=== PATIENT | female | born 1930 | race Caucasian/White ===

== ENCOUNTER 2017-03-27 19:41 | Observation (INO) ==
[2017-03-27] MEDS ORDERED: ASPIRIN 81 MG CHEWABLE TABLET PO ONE (20:10)
[2017-03-27] MEDS: NITROGLYCERIN 0.4 MG SUBLINGUAL TABLET SL PRN ×3 (20:18→20:35)
[2017-03-27] MEDS: SALINE FLUSH 10ml SYRINGE IVF PRN ×2 (20:19→21:51)
--- OUTSIDE RECORDS SUMMARY | 2017-03-27 20:24 | External Medical Summary | Referral Summary ---
:1930 Author Organization [facility] Address [address] [place] [address] Care Team Providers Name Role Phone Josh Jaquez Primary Care Physician Encounter [facility] [id number] Date(s): 05/25/15 - 05/25/15 [facility] [address] [place] [address] Discharge Disposition: 01-Home or Self Care Attending Physician: Waldo Love MD Admitting Physician: Waldo Love MD Vital Signs Most recent to oldest [Reference Range]: 1 Peripheral Pulse Rate [60-100 bpm] 79 bpm (05/25/15 1:56 PM) Respiratory Rate [14-20 br/min] 18 br/min (05/25/15 1:56 PM) Blood Pressure [90-140/60-90 mmHg] 174/77 mmHg *HI* (05/25/15 1:56 PM) SpO2 99 % (05/25/15 1:56 PM) Problem List Condition Effective Dates Status Health Status Informant Acute pain(Confirmed) Active Arthritis(Confirmed) Active patient At risk for infection(Confirmed)1 Active At risk of pressure sore(Confirmed) Active Cardiac disorder(Confirmed)2 Active Fluid imbalance(Confirmed)3 Active TELIDA (hard of hearing)(Confirmed) Active patient HTN (hypertension)(Confirmed) Active patient Impaired gas exchange(Confirmed)4 Active Impaired skin integrity(Confirmed)5 Active Tissue perfusion Active alteration(Confirmed)6 1Problem added automatically by system based on initiation of At Risk for Infection in Nutrition Planof [id number] added automatically by system based on initiation of Cardiac Output/Ineffective Cardiac Perfusion Plan of [id number] added automatically by system based on initiation of Fluid Volume Imbalance Plan of [id number] added automatically by system based on initiation of Impaired Gas Exchange Plan of [id number] added automatically by system based on initiation of Impaired Skin Integrity Plan of [id number] added automatically by system based on initiation of Tissue Perfusion Cerebral Plan of Care Allergies, Adverse Reactions, Alerts Substance Reaction Severity Status sulfa drugs Head and Stomach ache Medium Active Medications aspirin 81 mg, Oral, Bedtime (once a day), 0 Refill(s) Start Date: 04/21/14 Status: Orderedglucosamine 1,500 mg, Oral, BID, 0 Refill(s) Start Date: 04/21/14 Status: OrderedLutein 20 mg oral tablet See Instructions, 1 tabs Oral Daily on MWF, 0 Refill(s) Start Date: 05/25/15 Status: Orderedmagnesium oxide 600 mg, Oral, Daily, 0 Refill(s) Start Date: 04/21/14 Status: OrderedMisc Medication Calcium with D3, 1200mg, 1 tab oral bid, 0 Refill(s) Start Date: 04/21/14 Status: OrderedMisc Medication See Instructions, Lipo Flavoid, 1 tab oral bid, 0 Refill(s) Start Date: 04/21/14 Status: Orderedmultivitamin See Instructions, Complete Senior Adult 50+, 1 tab, daily, 0 Refill(s) Start Date: 04/21/14 Status: OrderedPlavix 75 mg oral tablet 1 tabs, Oral, Daily, # 90 tabs, 3 Refill(s) Start Date: 05/09/14 Status: Orderedpravastatin 10 mg oral tablet See Instructions, 1 tabs Oral Bedtime on Sunday and , 0 Refill(s) Start Date: 05/25/15 Status: OrderedVitamin D3 1,000 Intl_Units, Oral, BID, 0 Refill(s) Start Date: 04/21/14 Status: Ordered Results Hematology Most recent to oldest [Reference Range]: 1 WBC [4.8-10.8 10*3/uL] 4.4 10*3/uL *LOW* (05/25/15 1:51 PM) RBC [4.00-5.20] 4.20 (05/25/15 1:51 PM) Hgb [12.0-16.0 gm/dL] 12.6 gm/dL (05/25/15 1:51 PM) Hct [37.0-47.0 %] 39.3 % (05/25/15 1:51 PM) MCV [82.0-99.0 fL] 93.6 fL (05/25/15 1:51 PM) MCH [27.0-32.0 pg] 30.0 pg (05/25/15 1:51 PM) MCHC [32.0-36.0 gm/dL] 32.1 gm/dL (05/25/15 1:51 PM) RDW [11.5-14.5 %] 13.7 % (05/25/15 1:51 PM) Platelet [150-400 10*3/uL] 157 10*3/uL (05/25/15 1:51 PM) MPV [9.4-12.4 fL] 10.8 fL (05/25/15 1:51 PM) Chemistry Most recent to oldest [Reference Range]: 1 Sodium Lvl [136-144 mEq/L] 139 mEq/L (05/25/15 1:51 PM) Potassium Lvl [3.6-5.1 mEq/L] 4.0 mEq/L (05/25/15 1:51 PM) Chloride [99-109 mEq/L] 103 mEq/L (05/25/15 1:51 PM) CO2 [22-32 mEq/L] 28 mEq/L (05/25/15 1:51 PM) AGAP [3-20] 8 (05/25/15 1:51 PM) BUN [4-20 mg/dL] 17 mg/dL (05/25/15 1:51 PM) Glucose Lvl [70-100 mg/dL] 151 mg/dL *HI* (05/25/15 1:51 PM) Creatinine Lvl [0.44-1.03 mg/dL] 0.98 mg/dL (05/25/15 1:51 PM) eGFR [>60] 54 1 *ABN* (05/25/15 1:51 PM) Calcium Lvl [8.6-10.0 mg/dL] 9.3 mg/dL (05/25/15 1:51 PM) 1Result Comment: Multiply eGFR results by 1.21 for race. 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 Onlytrsace perivalvular leak is seen.The patient had no further events and no further symptoms and is doing fairly well. Orders: Electrocardiogram
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
[2017-03-27] MEDS ORDERED: METOPROLOL 5mg/5ml INJECTION IVP ONE (21:45)
[2017-03-27] MEDS ORDERED: ACETAMINOPHEN 325 MG TABLET PO PRN (22:30)
[2017-03-27] MEDS ORDERED: ONDANSETRON 4 MG/2 ML INJECTION IVP PRN (22:30)
[2017-03-27] MEDS ORDERED: HYDROCODONE/APAP 5mg/325mg TABLET PO PRN (22:30)
[2017-03-27] MEDS ORDERED: DOCUSATE SODIUM 100 MG CAPSULE PO PRN (22:30)
[2017-03-27] MEDS ORDERED: NITROGLYCERIN 0.4 MG SUBLINGUAL TABLET SL PRN (23:06)
[2017-03-27 23:15] VITALS: BMI 25.7
[2017-03-27] MEDS: NS 1,000 ML IV SCH ×2 (23:36→23:39)
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
[2017-03-28 08:07] VITALS: RESP 16; O2SAT 93
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
[2017-03-28] MEDS ORDERED: ASPIRIN 81 MG CHEWABLE TABLET PO SCH ×2 (09:00→21:00)
--- NOTE | 2017-03-28 10:55 | Progress Note ---
Progress Note: The patient was admitted last evening by the telemedicine hospitalist. The patient actually sees Dr. Jaquez for primary care. I did stop by and talk with the patient briefly. She did confirm her primary care physician was Dr. Jaquez. She stated she had some chest pressure last night but none today. She denies any shortness of breath or nausea. She states she feels normal today. She did have an increase in her troponin overnight. Her vital signs are currently stable. I did notify Dr. Dr. Jaquez this morning, of his patient's admission overnight. He did request that I make sure the patient was stable since he will not be able to see her until later in the day. At this time, she does appear to be stable. I also did call and talk with Dr. Sanchez who stated that he was aware of the patient's admission and would be seeing her later today. I did call the nurse and notified her that would be assuming care this patient and asked her to change the attending on the computer.
[2017-03-28] MEDS ORDERED: REGADENOSON 0.4 MG/5 ML INJECTION IVP ONE (11:00)
[2017-03-28] MEDS ORDERED: SALINE FLUSH 10ml SYRINGE ONE (11:00)
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
[2017-03-28 16:52] VITALS: BP 139/73; PULSE 76; TEMP 97.5
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
[2017-03-28] MEDS: CLOPIDOGREL 75 MG TABLET PO ONE ×2 (18:12→18:31)
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
[2017-03-28] MEDS ORDERED: ROSUVASTATIN 5 MG TABLET PO SCH (21:00)
[2017-03-29] MEDS ORDERED: CLOPIDOGREL 75 MG TABLET PO SCH (09:00)
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
== END 2017-03-28 20:45 | disposition home or self-care (01) ==
LOC: SRG 19:41 → ED 19:41 → SUATTDRO 22:30 → SRG 23:00
PROVIDERS: ADMIT Internal Medicine; ATTEND Family Medicine

== ENCOUNTER 2017-03-31 08:11 | Observation (INO) ==
--- NOTE | 2017-03-31 08:21 | Emergency Department Report ---
General Adult HPI - General Stated complaint: cp Time Seen by Provider: 03/31/17 08:20 Source: patient, EMS Mode of arrival: ambulatory Limitations: no limitations - History of Present Illness HPI narrative: 87-year-old female presents to the emergency department with chief complaints of chest pain. Patient describes her pain as a pressure that she rates as mild. It is in the center of the chest without radiation. She was given 324 mg of aspirin by mouth 1 from EMS prior to arrival to the emergency department today. She was given 3 sublingual nitroglycerin tablets with some relief. She denies any other complaints or associated symptoms. She was at home when the symptoms began. Symptoms have been persistent in nature since onset. She has no other complaints or associated symptoms at this time. - Related Data Home Medications Medication Instructions Recorded Confirmed Calcium Carbonate [Calcium] 1,200 mg PO DAILY 03/27/17 03/31/17 Cholecalciferol [Vit. D-3] 1,000 mg PO DAILY 03/27/17 03/31/17 Glucosamine 1,500 mg PO DAILY 03/27/17 03/31/17 Lipo Flavoid 1 tab PO DAILY 03/27/17 03/31/17 Lutein 20 mg PO MOWEFR 03/27/17 03/31/17 Magnesium Oxide [Magox] 800 mg PO DAILY 03/27/17 03/31/17 Metoprolol Tartrate [Lopressor] 12.5 mg PO BIDWM 03/27/17 03/31/17 Multi-Vitamin Plain [Theragran] 1 tab PO DAILY 03/27/17 03/31/17 Previous Rx's Medication Instructions Recorded Acetaminophen [Tylenol] 325 - 650 mg PO Q5H PRN tab 03/28/17 Clopidogrel [Plavix] 75 mg PO DAILY #30 tab 03/28/17 Hydrocodone/APAP 5/325 [[place] 1 tab PO Q6H PRN tab 03/28/17 5/325] Nitroglycerin [Nitrostat] 0.4 mg SL Q5MIN3 PRN tab 03/28/17 Rosuvastatin [Crestor] 5 mg PO 1 WEEK #30 tab 03/28/17 Allergies Allergy/AdvReac Type Severity Reaction Status Date / Time Sulfa (Sulfonamide Allergy Unknown [place], Verified 03/31/17 08:55 Antibiotics) STOMACHACHE cephalexin AdvReac Unknown N&V Verified 03/31/17 08:55 Review of Systems Constitutional: Denies: fever, chills Eyes: Denies: eye pain, vision change ENT: Denies: ear pain, throat pain Cardiovascular: Reports: chest pain. Denies: palpitations Respiratory: Denies: cough, dyspnea Gastrointestinal: Denies: abdominal pain, nausea, vomiting, diarrhea Genitourinary: Denies: urgency, dysuria Musculoskeletal: Denies: back pain, arthralgia Integumentary: Denies: erythema, rash Neurological: Denies: headache, numbness Psychiatric: Denies: anxiety, depression Endocrine: Denies: fatigue, heat or cold intolerance Hematological/Lymphatic: Denies: easy bruising, lymphadenopathy Allergic/Immunologic: Denies: facial swelling, urticaria PFSH Patient Stated Medical History Hypertension Yes Myocardial Infarction Yes: 03/29/17 Diabetes Mellitus Type 1 No Diabetes Mellitus Type 2 No Substance Use Disorder No Surgical History: TD 04/2205. heart cath 03/19. RSOA 03/19 Family History: Family History Unknown Diabetes mellitus HTN (hypertension) Heart disease CVA (cerebral vascular accident) Anemia Glaucoma - Social History Smoking status: Never smoker Substance use type: does not use Alcohol intake frequency: does not drink Current residence: Apartment/Private Home Physical Exam - Limitations Limitations: no limitations - General General appearance: alert, in no apparent distress - Normal Exams: Head:: Normocephalic without trauma Eyes:: Pupils are PERRLA w/ EOMI, No scleral icterus, irritation, or foreign bodies noted ENMT:: No facial trauma, nasal exudates, pharyngeal erythema, or exudates are noted Dental: No fractured, loose, or missing teeth noted Neck:: Full range of motion, without adenopathy, JVD, bruits or thyromegaly Chest/Respirations:: Clear all lopez, with good airflow, and symmetry bilaterally Cardiovascular:: Regular rate and rhythm, without murmur or gallop, Pulses 2+ all extremities, capillary refill, <2 seconds all extremities Abdomen:: Bowel sounds positive, soft, non-tender, non-distended, no hepatosplenomegaly, masses or bruits noted Lymphatic:: No lymphadenopathy, or lymphedema noted Musculoskeletal:: No tenderness, or deformity noted, good range of motion, all extremities Integumentary:: No rashes, hives, or bruising noted, hair and nails, without abnormality Neurological:: Patient is alert, and oriented, cranial nerves, motor/sensory/ cerebellar, exams w/o gross deficits, to observation Psychiatric:: Patient exhibits, appropriate attention, emotion and affect Course Vital Signs Temperature 98.3 F 03/31/17 08:13 Pulse Rate 77 03/31/17 08:13 Respiratory Rate 16 03/31/17 08:13 Blood Pressure 190/91 H 03/31/17 08:13 Pulse Oximetry 95 03/31/17 08:13 Temperature 98.3 F 03/31/17 08:13 Pulse Rate 54 L 03/31/17 09:30 Respiratory Rate 20 03/31/17 09:30 Blood Pressure 167/70 H 03/31/17 09:30 Pulse Oximetry 98 03/31/17 09:30 Medical Decision Making - [facility] Narrative Medical decision making narrative: Labs/imaging were discussed in detail with the patient and family and questions are answered. Patient is discussed in detail with her is analyst Dr. Stanislav Sanchez who recommends admission to her primary care physician and to have him see the patient in consultation. Patient has received 324 mg of aspirin by mouth 1 today. She is currently pain-free after being given fentanyl 50 g IV times one. Patient declined recommended Lovenox 1 mg/kg subcutaneously in the emergency Department. Risks vs benefit of this is discussed in detail with the patient and family who verbalize agreement and understanding. Patient is discussed with Dr. Jaquez and admitted to his service to the CCU in improved condition. No further orders from the accepting or consulting physicians who are in agreement with the current plan of management. Patient and family are in agreement with the current plan of management. Patient is admitted to the hospital in improved condition. - Differential Diagnosis ACS, chest wall pain, NH, viral syndrome - Lab Data Result diagrams: 03/31/17 08:39 03/31/17 08:39 Lab Results 03/31/17 03/31/17 Range/Units 08:39 08:39 WBC 4.5 (4.5-11.0) T/MM3 RBC 3.94 L (4.00-5.20) M/MM3 Hgb 11.9 L (12-16) GM/DL Hct 37.5 (36-46) % MCV 95.2 (80-100) UM3 MCH 30.2 (26-34) UUG MCHC 31.7 (31-37) GM/DL RDW Std Deviation 45.3 (36.9-50.2) FL Plt Count 126 L (130-400) T/MM3 MPV 10.4 (9.4-12.4) UM3 Immature Gran % (Auto) 0.0 (0.0-0.5) % Neut % (Auto) 72.4 H (33-66) % Lymph % (Auto) 15.0 L (23-45) % [place] % (Auto) 9.1 H (0-9.0) % Eos % (Auto) 2.2 (0-4) % Baso % (Auto) 1.3 (0-2) % Neut # (Auto) 3.3 (1.8-7.7) T/MM3 Lymph # (Auto) 0.7 L (1-4.8) T/MM3 [place] # (Auto) 0.4 (0-0.8) T/MM3 Eos # (Auto) 0.1 (0-0.5) T/MM3 Baso # (Auto) 0.1 (0-0.2) T/MM3 Abs Immat Gran (auto) 0.00 (0.00-0.03) T/MM3 Turbidity < 20 (0-20) Sodium 141 (134-144) MEQ/L Potassium 4.3 (3.6-5) MEQ/L Chloride 105 (98-107) MEQ/L Carbon Dioxide 28 (22-30) MEQ/L Anion Gap 8 (5-15) MEQ/L BUN 21.0 H (7-17) MG/DL Creatinine 1.1 (0.7-1.2) MG/DL GFR Calculation 47 BUN/Creatinine Ratio 19 (6-26) RATIO Glucose 108 (65-110) MG/DL Calculated Osmolality 275 (261-280) MOSM/KG Calcium 9.2 (8.4-10.2) MG/DL Total Bilirubin 1.00 (0.20-1.30) MG/DL Icterus Index < 2 (0-7) AST 33 (14-36) U/L ALT 29 (9-52) U/L Alkaline Phosphatase 106 (38-126) U/L Troponin I 0.027 (0-0.12) ng/ml Total Protein 6.6 (6.3-8.2) G/DL Albumin 3.8 (3.5-5.0) G/DL Globulin 2.8 (2.4-3.6) G/DL Albumin/Globulin Ratio 1.4 (1.1-2.2) RATIO Specimen Hemolysis < 15 (0-25) - Radiology Data CXR - probable mild vascular congestion and cardiomegaly. No obvious acute infiltrate. - EKG Data EKG #1 EKG results narrative: Sinus rhythm with first-degree AV block. Left bundle branch block. 78 bpm. No STEMI. Unchanged from 03/29/17. Reviewed with patient's is analyst Dr. Stanislav Sanchez. Disposition Clinical Impression: Chest pain Qualifiers: Chest pain type: unspecified Qualified Code(s): R07.9 - Chest pain, unspecified Disposition[place] [facility] [place]: Improved Prescriptions: No Action Multi-Vitamin Plain [Theragran] 1 tab PO DAILY Magnesium Oxide [Magox] 800 mg PO DAILY Cholecalciferol [Vit. D-3] 1,000 mg PO DAILY Calcium Carbonate [Calcium] 1,200 mg PO DAILY Metoprolol Tartrate [Lopressor] 12.5 mg PO BIDWM Lipo Flavoid 1 tab PO DAILY Glucosamine 1,500 mg PO DAILY Acetaminophen [Tylenol] 325 - 650 mg PO Q5H PRN tab PRN Reason: Discomfort Clopidogrel [Plavix] 75 mg PO DAILY #30 tab Nitroglycerin [Nitrostat] 0.4 mg SL Q5MIN3 PRN tab PRN Reason: Chest Pain Rosuvastatin [Crestor] 5 mg PO 1 WEEK #30 tab Lutein 20 mg PO MOWEFR Hydrocodone/APAP 5/325 [[place] 5/325] 1 tab PO Q6H PRN tab PRN Reason: Pain Referrals: Josh Jaquez MD [Family Provider] - Time of Disposition: 09:15 - Seen By: physician
[2017-03-31] MEDS ORDERED: FentaNYL 100 MCG/2 ML INJECTION IVP ONE (08:37)
[2017-03-31] MEDS ORDERED: ONDANSETRON 4 MG/2 ML INJECTION IVP ONE (08:37)
[2017-03-31] MEDS ORDERED: FentaNYL 100 MCG/2 ML INJECTION ONE (08:50)
[2017-03-31] MEDS: SALINE FLUSH 10ml SYRINGE IVF PRN ×3 (08:50→18:35)
[2017-03-31 10:54] VITALS: BMI 24.6
--- NOTE | 2017-03-31 12:19 | XRay Report ---
Indication: Pain Procedure: XR chest 1V: Encounter: Initial Comparison: 03/27/2017 Technique: A single portable AP chest radiograph was obtained. Findings: Lungs and airways: Normal lung volumes. No focal airspace consolidation. Pulmonary vascular redistribution. Pleura: No pleural effusion or pneumothorax. Heart and mediastinum: Cardiomegaly. Aortic atherosclerosis. Prosthetic valve/stent. Osseous structures and soft tissues: No acute osseous abnormality is seen. Postoperative changes of median sternotomy. Impression: Cardiomegaly with pulmonary vascular redistribution suggesting early venous hypertension/congestion. .
[2017-03-31] MEDS ORDERED: HYDROCODONE/APAP 5mg/325mg TABLET PO PRN (15:12)
[2017-03-31] MEDS ORDERED: ACETAMINOPHEN 325 MG TABLET PO PRN (15:12)
[2017-03-31] MEDS ORDERED: CALCIUM CARBONATE 500 MG TABLET PO SCH (15:15)
[2017-03-31] MEDS ORDERED: NITROGLYCERIN 0.4 MG SL PRN (15:20)
[2017-03-31] MEDS: CLOPIDOGREL 75 MG PO SCH (16:27)
[2017-03-31] MEDS: MULTI-VITAMIN PLAIN TABLET PO SCH (16:31)
[2017-03-31] MEDS ORDERED: ENOXAPARIN 150 MG/ML INJECTION SQ SCH (17:45)
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
[2017-03-31] MEDS: METOPROLOL TARTRATE 25 MG PO SCH (18:27)
[2017-03-31] MEDS: MAGNESIUM OXIDE 400 MG PO SCH (21:40)
[2017-04-01] MEDS: METOPROLOL TARTRATE 25 MG PO SCH ×2 (08:20→19:12)
[2017-04-01] MEDS: CLOPIDOGREL 75 MG PO SCH (08:20)
[2017-04-01] MEDS: [UNRECOGNIZED DRUG - OTHER] PO SCH (08:21)
[2017-04-01] MEDS: MULTI-VITAMIN PLAIN TABLET PO SCH (08:23)
[2017-04-01] MEDS: CALCIUM CARBONATE 600 MG TABLET PO SCH (08:23)
[2017-04-01] MEDS: GLUCOSAMINE 500 MG CAPSULE PO SCH (08:23)
[2017-04-01] MEDS: SALINE FLUSH 10ml SYRINGE IVF PRN ×2 (08:26→17:34)
[2017-04-01] MEDS ORDERED: MORPHINE SULFATE 2mg INJECTION IVP PRN (16:16)
[2017-04-01] MEDS ORDERED: NS 1,000 ML IV SCH (16:30)
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
--- NOTE | 2017-04-01 16:52 | Cardiology Progress Note ---
Subjective Interval history: intermittent chest tightness today (03/14) .Last night mild pain between shoulder blades , after getting up to BR to urinate perhaps x20 min , no releieving or worsening factors , no change wit position and got beter after she got back in bed. no other associated symptoms. feels CP worse with emotional stress ,when she starts thinking about her heart or the procedures. also Liz RN reports bradycardia this am 1-2 hrs while sitting in chair , mostly low 40's entirely asymptomatic w/o dizziness weakness or lightheadedness. no cp at that time. now HR 70's SR on the monitor and increases sig. during the conversation even with occ. pVC's. 2 daughters and son Ruben visiting. all their questions were answered. good appetite and no other c/o. no change in BM Exam Vital signs: Temperature 97.6 F 04/01/17 16:01 Pulse Rate 57 L 04/01/17 15:00 Respiratory Rate 23 04/01/17 15:00 Blood Pressure 149/67 H 04/01/17 15:00 Pulse Oximetry 95 04/01/17 15:00 - Constitutional no acute distress - Routine HEENT Exam Head: Present: normocephalic, atraumatic Eye: Present: EOMI, PERRL ENT: Present: mucous membranes moist - Routine Neck Exam Present: normal carotid upstroke. Absent: JVD, carotid bruit, lymphadenopathy, thyromegaly - Routine Respiratory Exam Present: CTA bilaterally - Routine Cardiovascular Exam Present: RRR, murmur (2-3/6 MALAIKA) - Routine Abdominal Exam Present: soft, normoactive bowel sounds, non distended, non tender. Absent: organomegaly, mass - Routine Extremities Exam Present: no edema, pulses intact, normal capillary refill. Absent: cyanosis, clubbing - Routine Skin Exam Present: intact, dry. Absent: cyanosis, erythema - Routine Neurological Exam Present: alert, oriented X3, moving all extremities, vision grossly intact, normal speech. Absent: motor deficit, altered mental status, hearing grossly intact ([place]), facial asymmetry - Routine Psychiatric Exam Present: normal thought process, cooperative, good insight, anxious Results 03/31/17 08:39 03/31/17 08:39 Cardiac Enzymes 04/01/17 Range/Units 15:10 Troponin I 0.064 D (0-0.12) ng/ml Intake and Output 04/01/17 04/01/17 04/01/17 06:59 14:59 22:59 Intake Total 560 / 560 Output Total 850 / 850 275 / 275 100 / 100 Balance -850 / -850 285 / 285 -100 / -100 Intake: Oral 560 / 560 Output: Urine 850 / 850 50 / 50 100 / 100 Urine Amount (Catheter) 225 / 225 Other: Urine Appearance Clear Clear Urine Color Pale Pale Yellow Yellow Urine Odor Normal Normal Stool Color Brown Stool Consistency Soft Formed Size of Bowel Movement Moderate # Bowel Movements 1 Weight 54.5 kg Patient Weight 04/02/17 06:59 Weight 54.5 kg - Imaging and Cardiology Holter: image reviewed EKG results: image reviewed - EKG Interpretation EKG: sinus rhythm EKG shows: bradycardia Assessment and Plan - Attestation Attestation Narrative: 04/01/17 16:52 Unstable angina, post NC Abnormal stress nuclear scan CAD with prior CABG 3 in 2005 Status post TAVR 2014 History of deferent statins' intolerance, now challenged with Crestor 5mg x2 / wk ,d/t CAD /ACS .risks and benefits dw pt. intermittent SB in upper 30's /low 40's appears entirely asymptomatic h/o recent sinus tachycardia, observation for tachy-suzanna syndrome , pt much prefers to avoid a pacemaker, she doesn't want it at this time . As in history of present illness was treated for unstable angina chest pain recurs will give sublingual nitroglycerin and/or nitroglycerin paste. Heart catheterization for Sunday morning patient is in agreement and alternatives, benefits precaty orders. see discussion. Also she is in agreement for Lovenox for unstable angina. If she becomes unstable transfer emergently to [place] this weekend where a 24 / 7 Is Available .Patient's Family Are Fully Understanding and Full Agreement and Preference to Stay at the [facility] CCU. adding NTG paste and lowering metoprolol , to 12.5 mg daily ,see below .observe for symptomatic suzanna or tachycardia. pbtain EKG (showed no acute changes) and Recheck Trop d/t recurrent / intermittent mild angina. continue ASA Plavix ,Lovenox last dose this Pm ,pending heart cath findings tomorrow. pt and cristopher asked me for DNR order. they agree to "suspend " that DNR order temporarirly at the time of her heart cath about 1 hour family conference and discussion of 1.transradial heart cath +- PTCA/stent via radial/femoral approach in the same or a later settings d/w pt and family in detail. under local anesthesia and after IV sedation is given, will proceed with advancing a catheter up the radial (or femoral ) artery to the heart and inject dye to visualize the coronoary arteries.(diagnostic heart cath by dr Rich Sanchez) possible angiplasty and stent Dr Rich Sanchez's associates ,including Tano Nagy and others. PTCA/Stent may or may not happen in the same settings. the indication aletrnatives risks and benefits and possible complications including but not limited to vascular damage, bleed, dye allergy , stroke heart attack or discussed. 2. pt had intermittent bradycardia the slowest low 40's for about 1-2 hrs while sitting in chair and after receiving am metoprolol.had an escape junctional beat before recovery of SB . pt appears entirely asymptomatic. last wk , following emotio nal and physical stress (see note ) pt had tachycardia up to 140 bpm (likely sinus tachy 1st d AVB more likely than atrial tachy) quickly improved after IV then PO Metroprolol same home dose 12.5 mg BID. the possible role of pacemaker implant fully discussed w pt and family. she wants to avoid it if at all possible. she prefers conservative Rx if at all possible. possible risks of suzanna and tachy arrhythmias discussed at length including a chance for sustained and symptomatic arrhythmias leading to a heart attack a stroke or ,and pt and family verbalized understanding. will lower metoprolol to tartrates (home supply) 12.5 mg ONCE daily and continue to observe and see . continue inpt telemetry ,and quite possibly a f/u out[pt holter monitor. also if coronary ischemia in the RCA/LCX distribution is found ,and treated with revascularization ,that might improve her arrhythmia(s) Hospital Course Summary Disclaimer: The visit summary below is not to be considered part of the above Progress Note.
[2017-04-01] MEDS ORDERED: ENOXAPARIN 60 MG/0.6 ML INJECTION SQ ONE (17:00)
[2017-04-01] MEDS: NITROGLYCERIN 2% OINTMENT 1gm PACKET TP SCH (17:37)
[2017-04-01] MEDS ORDERED: ROSUVASTATIN 5 MG PO SCH (21:00)
[2017-04-01] MEDS: MAGNESIUM OXIDE 400 MG PO SCH (22:29)
[2017-04-02] MEDS: NITROGLYCERIN 2% OINTMENT 1gm PACKET TP SCH (01:30)
[2017-04-02] MEDS ORDERED: NS 1,000 ML IV SCH (06:00)
--- NOTE | 2017-04-02 07:27 | History and Physical ---
CHIEF COMPLAINT Chest pressure. HPI The patient is an 87-year-old female with known history of coronary artery disease status post CABG who presented to [facility] ED today after she developed "chest tightness" early this morning. This felt similar to the chest pain she had just earlier this week requiring hospitalization here at that time. She did have elevated troponin I at that time. Dr. Sanchez had suggested heart cath, but the patient declined at that time. They were going to do medical management with the addition of Crestor once weekly and nitroglycerin sublingually p.r.n. The patient took sublingual nitro at time x 3 which did not help and therefore she called ambulance. She received a fentanyl injection in the emergency room with complete resolution of pain. Due to recent [id number]-yepodeipf myocardial infarction and the patient's history of coronary artery disease, Dr. Sanchez recommended the patient be admitted to [facility] ICU for further evaluation and recommendation. Dr. Sanchez has seen this patient earlier and then he started the patient on Lovenox in addition to Plavix. The patient has agreed to a heart cath scheduled for Sunday. PAST MEDICAL HISTORY 1. Coronary artery disease status post CABG, with heart cath March 2014 and ROSA in March 2014 as well. 2. Hypertension. 3. Dyslipidemia. FAMILY AND SOCIAL HISTORY Family history of diabetes mellitus, hypertension, heart disease, CVA, anemia, glaucoma. Patient never smoked. She does not drink. CURRENT MEDICATIONS 1. Calcium carbonate 1,200 mg one tablet daily. 2. Glucosamine 1,500 mg one tablet daily. 3. Lipo-flavonoid 1 tablet once daily. 4. Magnesium oxide 800 mg one tablet daily. 5. Metoprolol 12.5 mg one tablet p.o. b.i.d. 6. Crestor 5 mg once weekly. 7. Multivitamin 1 tablet daily. 8. Vitamin D3 1,000 mg one tablet daily. ALLERGIES 1. Sulfa. 2. Cephalexin. REVIEW OF SYSTEMS As per HPI. Denies any orthopnea. No PND. No leg swelling. Denies hematochezia. No melena. Denies any TIA or CVA symptoms. PHYSICAL EXAMINATION GENERAL: Patient looks comfortable. No distress. She is actually pain-free now. VITAL SIGNS: Blood pressure 187/71 with a pulse of 78, respiration 26, O2 sat 94% on room air. HEENT: Unremarkable. NECK: Supple. LUNGS: Clear to auscultation bilaterally. CARDIOVASCULAR: Regular rate and rhythm. ABDOMEN: Soft, nontender. EXTREMITIES: No cyanosis, clubbing or edema. NEURO EXAM: Grossly intact. ASSESSMENT 1. Chest pain - unstable angina. The patient is post NV recently. 2. History of coronary artery disease, CABG in 2005 x 3. 3. Dyslipidemia. Patient was recently on niacin which was discontinued and replaced with a statin, Crestor once weekly. 4. History of intolerance to statin class due to myalgia. 5. Vitamin D deficiency. 6. Osteoarthritis of the knees. PLAN The patient will be admitted to [facility] ICU under the care of Dr. Josh Jaquez. The patient has been by Dr. Sanchez. Prior to accepting the patient to my service, Dr. Sanchez agreed to see patient earlier on since I would not be available until later this evening. Dr. Sanchez did see the patient several hours ago and adjusted the patient's regimen including Crestor to twice weekly and continue with Plavix, added Lovenox subcutaneous. Dr. Sanchez and the patient are in agreement for heart cath on Sunday. Please note lab done today at the emergency room: troponin I was entirely normal at 1) 0.025, 2) 0.027. Electrolytes were normal including creatinine, and liver function tests. MTDD
[2017-04-02] MEDS: CLOPIDOGREL 75 MG PO SCH (07:40)
[2017-04-02] MEDS ORDERED: FentaNYL 100 MCG/2 ML INJECTION ONE (07:41)
[2017-04-02] MEDS ORDERED: Verapamil 5 MG/2 ML VIAL ONE (07:42)
[2017-04-02] MEDS ORDERED: MIDAZOLAM 2mg/2ml INJECTION ONE (07:42)
[2017-04-02] MEDS ORDERED: HEPARIN 1,000unit/ml INJECTION 10ml ONE (07:42)
[2017-04-02] MEDS ORDERED: NITROGLYCERIN 50MG INJECTION IV ONE (07:43)
[2017-04-02] MEDS ORDERED: LIDOCAINE 1% (10mg/ml) 30ml SDV INJ ONE (07:43)
[2017-04-02] MEDS ORDERED: HEPARIN 1,000 UNITS/500 ML PREMIX (*CVL ONLY*) IV ONE (07:43)
[2017-04-02] MEDS ORDERED: IOHEXOL 350mg/ml 200ml BOTTLE ONE (07:44)
[2017-04-02] MEDS ORDERED: SALINE FLUSH 10ml SYRINGE ONE (08:50)
[2017-04-02] MEDS ORDERED: LUTEIN 20 MG PO SCH (09:00)
[2017-04-02] MEDS ORDERED: MAG-AL + SIM ORAL LIQUID 30ml PO PRN (09:37)
[2017-04-02] MEDS ORDERED: HYDROCODONE/APAP 5mg/325mg TABLET PO PRN (09:37)
[2017-04-02] MEDS ORDERED: MORPHINE SULFATE 4mg INJECTION IVP PRN ×2 (09:37)
[2017-04-02] MEDS ORDERED: PROMETHAZINE 25 MG INJECTION IVP PRN (09:37)
[2017-04-02] MEDS ORDERED: ATROPINE 1 MG/ML INJECTION IVP PRN (09:37)
[2017-04-02] MEDS ORDERED: LORazepam 0.5 MG TABLET PO PRN (09:37)
[2017-04-02] MEDS ORDERED: ONDANSETRON 4 MG/2 ML INJECTION IVP PRN (09:37)
[2017-04-02] MEDS ORDERED: METOCLOPRAMIDE 10mg/2ml INJECTION IVP PRN (09:37)
[2017-04-02] MEDS ORDERED: ACETAMINOPHEN 325 MG TABLET PO PRN (09:37)
[2017-04-02] MEDS ORDERED: NITROGLYCERIN 0.4 MG SUBLINGUAL TABLET SL PRN (09:37)
[2017-04-02] MEDS ORDERED: BISACODYL 10 MG SUPPOSITORY RECTALLY PRN (09:37)
[2017-04-02] MEDS ORDERED: AMLODIPINE 2.5 MG TABLET PO SCH (09:45)
--- NOTE | 2017-04-02 11:53 | Cardiac Catheterization Report ---
DATE: 04/02/2017 INDICATIONS Post WA, unstable angina. Patient had a recent abnormal stress nuclear scan and had been having intermittent bradycardia although appears asymptomatic. She has an underlying left bundle branch block. No acute WA. This admission she did have a minimal non-STEMI inserting over tachycardia last week. At that time she opted for medical therapy. PROCEDURE PERFORMED Transradial coronary angiogram, saphenous vein graft injection, CARR arteriogram , conscious sedation (approximate time is 40 minutes). DESCRIPTION OF PROCEDURE After indications, alternatives, risks and benefits of the procedure were discussed with the patient in detail, she agreed to proceed. The patient was brought to the Cardiac Cath Laboratory and received IV sedation, IV versed 1 mg and fentanyl 25 mcg. The left wrist was prepped and draped in the usual sterile fashion. Under strict sterile technique and after injection of lidocaine 1% in the left wrist, using micropuncture kit, I entered the left radial artery without difficulty using modified Seldinger percutaneous technique. A sidearm of 6 [place] * * sheath was aspirated and flushed. We then injected with intraarterial "drug cocktail" including verapamil 2.5 mg, nitroglycerin 300 mcg and heparin 3000 units. We went with a 6 [place] CARR catheter over a guidewire under fluoroscopy guidance. I cannulated the left internal mammary artery. CARR arteriogram was performed with multiple projections then exchanged over a guidewire to a 5 [place] Lashell catheter. I performed coronary angiogram and multiple saphenous vein graft injections. The procedure was well tolerated. There were no immediate complications. The patient was hypertensive; had a baseline blood pressure 190/90 or there about with IV sedation and intraarterial antispasmodic medication. Blood pressure came down to 140's/80's. she received 250 cc saline bolus and at the conclusion of the study was administered IV labetalol 10 mg for hypertension in the range of 180-190/90's. Blood pressure dropped to 150's afterward. Heart rate remained stable, mostly in the 70's sinus rhythm. There were no immediate complications. PO amlodipine is ordered to start on the floor. FINDINGS 1. Hemodynamics as above. We did not cross the tissue prosthetic aortic valve. 2. Coronary angiogram. The left main coronary artery is large and normal. It gives origin to LAD. A small ramus branch vs a very high first diagonal and a nondominant left circumflex artery. LAD exhibits severe proximal stenosis. The mid LAD fills with * * filling. Large diagonal branch exhibits mild plaquing. Left circumflex artery is a nondominant vessel, gives origin to multiple obtuse marginal branches and exhibits minor plaquing, scattered but nothing inclusive. Left circumflex artery was not bypassed. Right coronary artery exhibits proximal total occlusion. The mid LAD exhibits significant stenosis, diffuse, about 70%. 3. Graft information. Saphenous vein graft to diagonal branch is widely patent. CARR to mid LAD is widely patient with an excellent runoff vessel which is the apex. Saphenous vein graft to the RCA exhibits some degenerative changes. The lumen of the vein graft is widely patent without any occlusive disease. It is attached to the distal RCA with good anastomosis and distally supplies a huge RCA with a large RPDA and PLB branch as well as an accessory RPDA. Distal RCA is free from any occlusive disease. The saphenous vein graft to the diagonal supplies proximal LAD. IMPRESSION 1. Two vessel coronary artery disease as manifested by occluded LAD and proximal RCA. The left circumflex artery is widely patent and non-bypassed. 2. Widely patent graft x 3 including CARR to LAD, SVG to diagonal branch and SVG to RCA; the latter graft exhibits non-occlusive degenerative changes with nevertheless still normal flow. RECOMMENDATIONS Medical therapy. I'm going to add amlodipine 2.5 mg daily both for blood pressure and anti-anginal. May titrate up in the future for an asymptomatic standing blood pressure goal of 140/80 or a little lower if tolerated. There appears to be a significant component of emotional stress contributing to patient's symptoms. Will maintain the patient on single anti-platelet agent at this time, Plavix, due to favorable atony with patient's bypass x 3. Will see how she tolerates twice a week Crestor dosing. It appears the patient's angina is most likely due to emotional stress, hypertension and possible small vessel disease. The patient is currently asymptomatic overnight without any angina. She had some asymptomatic bradycardia in the public health aide, now heart rate is up in the 70's. will ambulate the patient in Recovery and from a cardiac standpoint she is expected to be stable for discharge later today with followup plans with a 24-hr Holter monitor and office visit with me to followup on angina , bradycardia, coronary artery disease, status post * *. Final care will be discussed with Dr. Jaquez. [facility]
[2017-04-02] MEDS: GLUCOSAMINE 500 MG CAPSULE PO SCH (13:47)
[2017-04-02] MEDS: CALCIUM CARBONATE 600 MG TABLET PO SCH (13:47)
[2017-04-02] MEDS: MULTI-VITAMIN PLAIN TABLET PO SCH (13:48)
[2017-04-02] MEDS: [UNRECOGNIZED DRUG - OTHER] PO SCH (13:48)
--- NOTE | 2017-04-02 17:26 | Progress Note ---
DATE 04/01/2017 FIGUEROA Daniels is lying in her bed RM 5 in ICU at [facility] the morning I saw her about 6:05 a.m. She just had one episode of back pain overnight. Otherwise, no chest pain. PHYSICAL EXAM VITAL SIGNS: Fairly stable. GENERAL: The patient looks comfortable, in no acute distress. NECK: Supple. CHEST: Lungs are clear. CARDIOVASCULAR: Regular rate and rhythm. ABDOMEN: Soft. EXTREMITIES: No edema. LABORATORY Lab pending at this time. ASSESSMENT Unstable angina with recent NSTEMI. The patient is chest pain free at this time. History of coronary artery disease status post CABG x 2. Dyslipidemia. Vitamin D3 deficiency. PLAN Continue current care medically. Dr. Sanchez is trying to do a heart catheterization Sunday. ROSA
[2017-04-02 18:14] VITALS: BP 167/76; PULSE 63; RESP 23; TEMP 98; O2SAT 95
[2017-04-02] MEDS ORDERED: ROSUVASTATIN 5 MG TABLET PO SCH (21:00)
--- NOTE | 2017-04-03 17:44 | Discharge Summary ---
FINAL DIAGNOSES 1. Unstable angina with recent abnormal stress nuclear scan. 2. Recent NSTEMI. 3. Chronic left bundle branch block. 4. Dyslipidemia. 5. Hypertension. 6. Coronary artery disease. ATTENDING PHYSICIAN Dr. Josh Jaquez. INSPECTOR BOILER Dr. Gaurav Sanchez - Cardiology. REASON FOR ADMISSION The patient is an 87-year-old female who presented to [facility] ED on03/31/2017 because she developed chest tightness early that morning. She did try nitroglycerin which did not help and she called EMS. Upon arrival to [facility] the patient received fentanyl injection with complete resolution of her pain. The patient was recently dismissed from [facility] by myself following a mild NSTEMI. PROCEDURES Heart catheterization done today, 04/02/2017, by Dr. Gaurav Sanchez. Findings include wide patent graft x 3 involving the CARR to LAD, SVG to diagonal branch and SVG to RCA. HOSPITAL COURSE The patient was admitted to CCU at the recommendation of Dr. Gaurav Sanchez. The patient was started on her home medications including a beta leoncio, nitroglycerin, Crestor, Plavix, Lopressor. The patient's chest pain actually resolved for most of the hospitalization. The patient was taken to the catheter builder on 04/02/2017 in the morning by Dr. Sanchez. Previous bypasses x 3 were widely patent, as noted above. The patient was medically stable enough to be dismissed to home today. Dr. 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 He will observe this for now. He recommended the patient maybe receive a Holter monitor on an outpatient basis. The patient will continue on the same medications although Dr. Sanchez added Amlodipine 2.5 mg one tablet daily. He increased her Crestor to 5 mg twice weekly only. DISCHARGE MEDICATIONS 1. Amlodipine 2.5 mg one tablet daily. 2. Magnesium oxide 800 mg one tablet daily. 3. Vitamin D3 1000 units one tablet daily. 4. Calcium 1200 mg one tablet daily. 5. Metoprolol 12.5 mg p.o. b.i.d. 6. Lipo-flavin one tablet daily. 7. Glucosamine 1500 mg p.o. daily. 8. Tylenol 325 mg to 650 mg one tablet q.5h. p.r.n. discomfort. 9. Plavix 75 mg one tablet daily. 10. Nitroglycerin 0.4 mg sublingually p.r.n. 11. Crestor p.o. one tablet twice weekly. 12. Lutein 20 mg Sunday/Sunday/Sunday. 13. Hydrocodone 5 mg q.6h. p.r.n. 14. Multivitamin one tablet daily. FOLLOWUP The patient will follow up with Dr. Sanchez in two weeks. I will see the patient back in the office in 7-10 days. MARIAMD
== END 2017-04-02 19:45 | disposition home or self-care (01) ==
LOC: CCU 08:11 → ED 08:11 → CCU 10:38
PROVIDERS: ADMIT Family Medicine; ATTEND Family Medicine